=== PATIENT | male | born 1985 | race Caucasian/White ===

== ENCOUNTER 2017-08-03 20:09 | Emergency (ER) | payer SELFPAY ==
[~2017-08-03] VITALS: Ht 167.6 cm; Wt 77.7 kg
[~2017-08-03 20:09] MED LIST: PARO-37 PO; PARO20TA58 PO
[2017-08-03 20:15] VITALS: Ht 167.6 cm; Wt 77.7 kg
[2017-08-03] MEDS ORDERED: PARO-37 PO (23:08)
--- NOTE | 2017-08-03 23:11 | ERD ---
ER Documentation Chief Complaint Chief Complaint medication refill- paroxetene HPI Patient is a 32-year-old male who presents the emergency department for refill of his paroxetine prescription. Patient states due to insurance changes he has been unable to follow-up with his primary care physician. Patient reports taking Paxil for many years now. Patient states he last refilled his prescription in May in [place]. Patient states he ran out of his prescription 1 week ago. Patient denies any fevers, chills, nominal pain, nausea, vomiting, chest pain, shortness of breath or loss of consciousness. Patient denies any homicidal ideations or suicidal ideations at this time. No other concerns or complaints at this time. ROS All systems reviewed and are negative except as per history of present illness. Medications Home Meds Active Scripts Paroxetine Hcl* (Paroxetine*) 20 Mg Tablet, 20 MG PO DAILY, #30 TAB Prov:HONG ROBLES PA-C 08/03/17 Paroxetine Hcl* (Paroxetine*) 20 Mg Tablet, 20 MG PO DAILY, #30 TAB Prov:LEXII HUTCHISON MD 08/11/15 Discontinued Scripts Paroxetine Hcl* (Paroxetine*) 20 Mg Tablet, 20 MG PO DAILY for 30 Days, TAB 0 Refills Prov:HONG ROBLES PA-C 06/23/16 Paroxetine Hcl* (Paxil*) 20 Mg Tablet, 20 MG PO DAILY, #30 TAB 3 Refills Prov:GRABIEL BLOOD PA-C 04/25/16 Paroxetine Hcl* (Paxil*) 20 Mg Tablet, 20 MG PO DAILY for 30 Days, TAB Prov:JOHN MONTELONGO PA-C 03/03/16 Paroxetine Hcl* (Paroxetine*) 20 Mg Tablet, 20 MG PO DAILY for 30 Days, TAB Prov:MIKALA HILLIARD NP 11/13/15 Paroxetine Hcl* (Paroxetine*) 20 Mg Tablet, 20 MG PO DAILY, #30 TAB 0 Refills Prov:KAYA BAUTISTAC 09/25/15 Allergies Allergies: Coded Allergies: No Known Allergy (Unverified , 08/03/17) PMhx/Soc Medical and Surgical Hx: pt denies Medical Hx, pt denies Surgical Hx History of Surgery: No Anesthesia Reaction: No Hx Neurological Disorder: No Hx Respiratory Disorders: No Hx Cardiac Disorders: No Hx Psychiatric Problems: Yes (depression, anxiety) Hx Miscellaneous Medical Probl: No Hx Alcohol Use: Yes (quit) Hx Substance Use: No Hx Tobacco Use: Yes Smoking Status: Former smoker Physical Exam Vitals Vital Signs Date Time Temp Pulse Resp B/P Pulse Ox O2 Delivery O2 Flow Rate FiO2 08/03/17 23:14 98.0 100 20 115/69 100 Room Air 08/03/17 20:15 97.8 75 20 130/61 100 Physical Exam GENERAL: Well-developed, well-nourished male. Appears in no acute distress. Speaking in full sentences. HEAD: Normocephalic, atraumatic. EYES: Pupils are equally reactive bilaterally. EOMs grossly intact. No conjunctival erythema. NECK: Supple. No meningismus. Normal range of motion of the neck. LUNGS: Clear to auscultation bilaterally. No rhonchi, wheezing, rales or coarse breath sounds. HEART: Regular rate and rhythm. No murmurs, rubs or gallops. EXTREMITIES: Equal pulses bilaterally. No peripheral clubbing, cyanosis or edema. No unilateral leg swelling. NEUROLOGIC: Alert and oriented. Moving all four extremities without any difficulty. Normal speech. Steady gait. SKIN: Normal color. Warm and dry. No rashes or lesions. Procedures/MDM MEDICAL DECISION MAKING: Patient is a 32-year-old male who presents ED for concerns of a medication refill of his paroxetine prescription. Patient reports taking this medication for many years now. Patient denies any homicidal or suicidal ideations.. Vital signs were reviewed. Patient is afebrile. Patient was not hypoxic. Patient was hemodynamically stable. ED pharmacy technician program director verified patient's prescription. Patient has refilled his prescription at [facility] in [place] in the beginning of May. pharmacy technician program director stated that patient is currently taking 20 mg daily. At this time, patient's presentation most consistent with medication refill. Low suspicion for abuse or serotonin withdrawal syndrome. Low suspicion for suicide ideation or homicidal ideation. Patient was advised to follow-up with his primary care physician for additional refills. PRESCRIPTION: Paroxetine no refills. DISCHARGE: At this time, patient is stable for discharge and outpatient management. I have instructed the patient to follow-up with his/her primary care physician in 1-2 days. I have discussed with the patient the possibility of needing to see a specialist for further workup and imaging studies if symptoms persist. I have instructed the patient to promptly return to the ER for any new or worsening symptoms including increased pain, fever, nausea, vomiting, weakness or LOC. The patient and/or family expressed understanding of and agreement with this plan. All questions were answered. Home care instructions were provided. Disclaimer: Inadvertent spelling and grammatical errors are likely due to EHR/ dictation software use and do not reflect on the overall quality of patient care. Also, please note that the electronic time recorded on this note does not necessarily reflect the actual time of the patient encounter. Departure Diagnosis: Primary Impression: Encounter for medication refill Condition: Stable Patient Instructions: Taking Medicine Safely Referrals: [facility] YOU HAVE RECEIVED A MEDICAL SCREENING EXAM AND THE RESULTS INDICATE THAT YOU DO NOT HAVE A CONDITION THAT REQUIRES URGENT TREATMENT IN THE EMERGENCY DEPARTMENT. FURTHER EVALUATION AND TREATMENT OF YOUR CONDITION CAN WAIT UNTIL YOU ARE SEEN IN YOUR DOCTORS OFFICE WITHIN THE NEXT 1-2 DAYS. IT IS YOUR RESPONSIBILITY TO MAKE AN APPOINTMENT FOR FOLOW-UP CARE. IF YOU HAVE A PRIMARY DOCTOR --you should call your primary doctor and schedule an appointment IF YOU DO NOT HAVE A PRIMARY DOCTOR YOU CAN CALL OUR PHYSICIAN REFERRAL HOTLINE AT IF YOU CAN NOT AFFORD TO SEE A PHYSICIAN YOU CAN CHOSE FROM THE FOLLOWING [facility] [address] [facility]. [facility] [address] [facility] [facility] [address] [facility]. [facility] [address] [facility]. [facility] [address] [facility]. [facility]. [address] [facility]. [facility] YOU HAVE RECEIVED A MEDICAL SCREENING EXAM AND THE RESULTS INDICATE THAT YOU DO NOT HAVE A CONDITION THAT REQUIRES URGENT TREATMENT IN THE EMERGENCY DEPARTMENT. FURTHER EVALUATION AND TREATMENT OF YOUR CONDITION CAN WAIT UNTIL YOU ARE SEEN IN YOUR DOCTORS OFFICE WITHIN THE NEXT 1-2 DAYS. IT IS YOUR RESPONSIBILITY TO MAKE AN APPOINTMENT FOR FOLOW-UP CARE. IF YOU HAVE A PRIMARY DOCTOR --you should call your primary doctor and schedule and appointment IF YOU DO NOT HAVE A PRIMARY DOCTOR YOU CAN CALL OUR PHYSICIAN REFERRAL HOTLINE AT . IF YOU CAN NOT AFFORD TO SEE A PHYSICIAN YOU CAN CHOSE FROM THE FOLLOWING [facility] INSTITUTIONS: [facility] [address] [place] [address] [facility] [address] [place] [address] [facility] [address] [place] [address] Additional Instructions: Call your primary care doctor TOMORROW for an appointment during the next 1-2 days.See the doctor sooner or return here if your condition worsens before your appointment time. HONG ROBLES PA-C Aug 03, 2017 23:11
[2017-08-03 23:14] VITALS: BP 115/69; PULSE 100; RESP 20; TEMP 98
== END 2017-08-03 23:13 | disposition home or self-care (01) ==
LOC: FTE 20:09
DX: Z76.0 Encounter for issue of repeat prescription (principal); F17.210 Nicotine dependence, cigarettes, uncomplicated
CPT/HCPCS: 99281